=== PATIENT | female | born 1960 | race Caucasian/White ===

== ENCOUNTER 2020-10-16 06:44 | Emergency (ER) | payer BC, OTHER ==
[~2020-10-16] VITALS: Ht 170.2 cm; Wt 102.0 kg
[2020-10-16 06:47] VITALS: BP 149/81
== END 2020-10-16 08:19 | disposition home or self-care (01) ==
LOC: ER 06:45
DX: F07.81 Postconcussional syndrome (principal); H53.149 Visual discomfort, unspecified; E11.9 Type 2 diabetes mellitus without complications; F17.200 Nicotine dependence, unspecified, uncomplicated; Z85.9 Personal history of malignant neoplasm, unspecified; Z85.820 Personal history of malignant melanoma of skin
CPT/HCPCS: 70450; 99284

== ENCOUNTER 2023-04-22 04:17 | Emergency (ER) | payer BC, MEDICAID ==
[~2023-04-22] VITALS: Ht 170.2 cm; Wt 92.7 kg
[~2023-04-22 04:17] MED LIST: OXYC-145 PO
[2023-04-22 04:33] VITALS: PULSE 83
[2023-04-22] MEDS ORDERED: LIDOcaine 1% W/epiNEPHrine 1:100,000 20ml vial SQ ONE (06:50)
[2023-04-22] MEDS ORDERED: TETanus/Pertussis (Acell)/Diphther VAC/PF (Tdap-Adult) 0.5ml syringe IMVAC ONE (07:25)
[2023-04-22] MEDS ORDERED: HYDROcodone/acetaminophen 10/325mg tab PO ONE (07:25)
[2023-04-22] MEDS ORDERED: sulfamethoxazole/trimethoprim DS (800/160mg) tablet PO ONE (07:25)
[2023-04-22] MEDS ORDERED: clindamycin 150mg capsule PO ONE (07:25)
[2023-04-22] MEDS ORDERED: CLIN300C3 PO (08:57)
[2023-04-22] MEDS ORDERED: SULF1TAB49 PO (08:57)
[2023-04-22] MEDS ORDERED: HYDR-3973 PO (08:57)
[2023-04-22 09:08] VITALS: BP 145/82; RESP 14; TEMP 98.1; O2SAT 98
== END 2023-04-22 09:09 | disposition home or self-care (01) ==
LOC: ER 04:18
DX: N76.4 Abscess of vulva (principal); E11.9 Type 2 diabetes mellitus without complications; F17.200 Nicotine dependence, unspecified, uncomplicated; Z79.899 Other long term (current) drug therapy
CPT/HCPCS: 56405; 90471; 90715; 99284; A6266; A6449